=== PATIENT | female | born 1960 | race Caucasian/White ===

== ENCOUNTER 2016-10-30 20:47 | Emergency (ER) | payer BC ==
[~2016-10-30 20:47] MED LIST: ALLEGRA PO; BUMEX2 MG PO; CALCIUM + D 6001 TA1 PO; DEXILANT60 MG PO; FLEXERIL10 MG PO; LASIX20 MG PO; LEXAPRO20 MG PO; MOBIC15 MG PO; MULTI VITAMINS W1 MG PO; ONE-A-DAY WEIGH1 TAB PO; OSPHENA60 MG PO; PERCOCET 7.5-31 EACH PO; PHENERGAN PO; POTASSIUM99 M2 PO; SINGULAIR PO; STOMACH MED; TOPAMAX25 MG PO; TREXIMET 85-5001 TAB PO; VICODIN PO; VITAMIN D34000 UNIT PO; XANAX XR1 MG PO; ZYRTEC10 M2 PO
[2016-10-30 20:58] LABS: BASOPHIL# 0.1 X10e3 (0-0.3); BASOPHIL% 1.5 % (0-2.5); EOSINOPHIL# 0.3 X10e3 (0-0.7); EOSINOPHIL% 4.5 % (0.0-7.0); HEMATOCRIT 23.8 % (35.0-45.0); LYMPHOCYTE# 1.4 X10e3 (1.0-3.5); LYMPHOCYTE% 22.4 % (17.0-45.0); MEAN CELL VOLUME 69.2 FL (83-96); MEAN CORPUSCULAR HEMOGLOBIN 19.9 PG (28-34); MEAN CORPUSCULAR HGB CONC 28.7 g/dL (30-36); MEAN PLATELET VOLUME 9.1 FL (6.5-11.5); MONOCYTE# 0.5 X10e3 (0-1.0); MONOCYTE% 7.6 % (3.0-12.0); PLATELET COUNT 418 X10e3 (140-420); RED BLOOD COUNT 3.44 X10e (3.90-5.30); RED CELL DISTRIBUTION WIDTH 18.3 % (11.0-15.5); WHITE BLOOD COUNT 6.2 X10e3 (4.0-10.5)
[2016-10-30 20:59] LABS: ALBUMIN SERUM 3.1 g/dL (3.5-5.0); ALKALINE PHOSPHATASE 80 U/L (32-92); ALT (SGPT) 19 U/L (10-40); AST (SGOT) 22 U/L (10-42); BILIRUBIN, DIRECT <0.1 mg/dL (0.0-0.2); BILIRUBIN,INDIRECT 0.6 mg/dL (0.0-0.9); BILIRUBIN,TOTAL 0.7 mg/dL (0.2-2.0); BLOOD UREA NITROGEN 5 mg/dL (9-23); BUN/CREATININE RATIO 7.14; CALCIUM SERUM 8.2 mg/dL (8.4-10.2); CARBON DIOXIDE 24 mmol/L (22-31); CHLORIDE 109 mmol/L (100-111); CREATININE SERUM 0.7 mg/dL (0.6-1.4); GLOM FILT RATE Estimated ABOVE60 mL/min (>60); GLUCOSE FASTING 100 mg/dL (70-110); LIPASE 31 U/L (22-51); POTASSIUM 3.1 mmol/L (3.5-5.1); PROTEIN TOTAL SERUM 5.3 g/dL (6.0-8.3); SODIUM 137 mmol/L (135-145)
[2016-10-30 21:00] LABS: HEMOGLOBIN 6.8 gm/dL (12.0-16.0)
[2016-10-30 21:01] LABS: DIFF IND YES
[2016-10-30 21:30] LABS: PLATELET ESTIMATE NORMAL (NORMAL); POIKILOCYTOSIS SL
[2016-10-30 21:31] LABS: ANISOCYTOSIS MOD; MICROCYTOSIS MOD
[2016-10-30 21:33] LABS: ACANTHOCYTES PRESENT; POLYCHROMASIA SL
[2016-10-30 23:13] LABS: URINE SOURCE CLEAN CATCH
[2016-10-30 23:15] LABS: URINE APPEARANCE CLEAR; URINE BILIRUBIN NEG (NEG); URINE BLOOD NEG (NEG); URINE COLOR YELLOW; URINE GLUCOSE NEG (NORM); URINE KETONE 1+ (NEG); URINE LEUKOCYTE ESTERASE NEG (NEG); URINE NITRATE NEG (NEG); URINE PROTEIN NEG (NEG); URINE SPECIFIC GRAVITY <=1.005 (1.003-1.035); URINE UROBILINOGEN 0.2 MG/DL (NORM)
[2016-10-30 23:33] LABS: MICRO INDICATED? NO
[2016-10-31 02:44] LABS: HEMATOCRIT 25.7 % (35.0-45.0); HEMOGLOBIN 7.6 gm/dL (12.0-16.0)
== END 2016-10-31 03:20 | disposition home or self-care (01) ==
LOC: SED 20:47
PROVIDERS: Emergency Medicine
DX: K52.9 Noninfective gastroenteritis and colitis, unspecified (principal); D64.9 Anemia, unspecified; Z88.5 Allergy status to narcotic agent; Z90.49 Acquired absence of other specified parts of digestive tract
CPT/HCPCS: 36415; 36430; 80048; 80076; 81003; 83690; 85014; 85018; 85025; 86850; 86900; 86901; 86922; 87651; 96361; 96374; 96375; 99284; C9113; J2405; P9016

== ENCOUNTER → 2017-01-28 | Outpatient (CLI) | payer BC ==
--- NOTE | ~2017-01-28 | CR236 ---
[facility] A Service of [facility] & [facility] RADIOLOGY TEXT RESULTS PATIENT: ELINA BOLIVRA LOCATION: [facility] : 58 UNIT #: [id number] AGE: [address]: Damien Sandra MD SEX: F ORDER DR: [id number] [facility] [address] [place], [place] [address] [id number] O MR#: [id number] Acc #: [id number] NAME: ELINA BOLIVAR : 1960 SEX: F STUDY DATE/TIME: 01/28/2017 8:35 UNIT: [facility] ROOM: STUDY DESCRIPTION: CR Small Bowel Sbft W Films Attending Physician: Damien Sandra M.D. Referring Physician: Damien Sandra M.D. Ordering Physician: Damien Sandra M.D. Primary Care Physician: Tad Archibald M.D. MEDICAL IMAGING REPORT This report is preliminary unless electronic signature is present EXAM Small bowel follow-through study HISTORY Anemia and diarrhea since October 2016. FINDINGS Barium was administered orally and overhead radiographs were obtained through 4 hours and 15 minutes. There is some prolonged passing of the barium through the small bowel. Proximal small bowel appears mildly dilated. There is no evidence however of obstruction and flocculated barium is identified in the ileum and colon by 4 hours. Spot radiographs of the terminal ileum were extremely limited. CONCLUSION Slightly dilated small bowel loops with mild delay in transit but no additional small bowel abnormalities. No evidence of obstruction. ADDENDUM Note is made of prior gastric bypass. Dictated by... Francis Abernathy M.D. THIS IS AN ELECTRONICALLY VERIFIED REPORT Francis Abernathy M.D. at 02/02/2017 7:13 AM JOELK/chely TD: 01/28/2017 17:56 JOB #: [id number] MEDICAL IMAGING REPORT Page 1 of 1 COPY
== END | disposition home or self-care (01) ==
LOC: CRAD 08:04
DX: D64.9 Anemia, unspecified (principal); K21.9 Gastro-esophageal reflux disease without esophagitis; K59.1 Functional diarrhea; L29.0 Pruritus ani; K57.90 Diverticulosis of intestine, part unspecified, without perforation or abscess without bleeding; K62.5 Hemorrhage of anus and rectum; K64.4 Residual hemorrhoidal skin tags
CPT/HCPCS: 74250